=== PATIENT | male | born 1995 | race Caucasian/White ===

== ENCOUNTER 2021-12-05 22:33 | Emergency (ER) | payer BC ==
[2021-12-05 22:42] VITALS: TEMP 98
[2021-12-06] MEDS ORDERED: GELATIN SPONGE,ABSORB (SMALL) 1 EACH SPONGE TOPICAL STA (00:27)
--- NOTE | 2021-12-06 00:30 | ED ---
Wound/Laceration HPI - General Chief Complaint: Wound/Laceration Stated Complaint: left middle finger cut Time Seen by Provider: 12/06/21 00:23 Source: patient, RN notes reviewed, old records reviewed Mode of arrival: ambulatory Limitations: no limitations - History of Present Illness Initial Comments: This is a well-appearing 26-year-old male who was cutting an orange and sliced the tip of his finger. States could not control bleeding so came in. -: hour(s) (1) Location: other (left middle finger) Place: home Patient Tetanus UTD: Yes Context: accidental, sharp object use Associated Symptoms: none - Related Data Allergies Allergy/AdvReac Type Severity Reaction Status Date / Time No Known Allergies Allergy Verified 12/05/21 22:42 Review of Systems ROS Statement: Those systems with pertinent positive or pertinent negative responses have been documented in the HPI. ROS Other: All systems not noted in ROS Statement are negative. Past Medical History Past Medical History: Asthma History of Any Multi-Drug Resistant Organisms: None Reported Past Surgical History: No Surgical Hx Reported Past Psychological History: Depression Smoking Status: Never smoker Past Alcohol Use History: Occasional Past Drug Use History: None Reported General Exam Limitations: no limitations General appearance: alert, in no apparent distress Head exam: Present: atraumatic Respiratory exam: Absent: respiratory distress, accessory muscle use Cardiovascular Exam: Present: regular rate Left Hand Wrist exam: Present: tenderness, nail avulsion (distal left tip of nail with capillary bleeding) Neuro motor exam: Present: wrist extension intact, thumb opposition intact, thumb IP flexion intact, thumb adduction intact, fingers 2-5 abduction intact Neurosensory exam: Present: other (flexor and extensor tendon intact) Vascular: Present: normal capillary refill. Absent: vascular compromise Neurological exam: Present: alert, oriented X3 Psychiatric exam: Present: normal affect, normal mood Skin exam: Present: warm, dry, normal color. Absent: cyanosis, diaphoretic Course Vital Signs 12/05/21 12/06/21 22:40 00:47 Temperature 98 F Pulse Rate 80 88 Respiratory 18 16 Rate Blood Pressure 142/94 131/76 O2 Sat by Pulse 99 98 Oximetry Medical Decision Making - Medical Decision Making Gelfoam applied to the wound with gauze dressing. bleeding was controlled. flexor and extensor tendons intact. patient states his tetanus shot is up-to-date. He was directed to keep dressing in place until tomorrow and then remove and use Neosporin and bandage and keep covered and clean. Return if any signs of infection case discussed with Dr. Park Disposition Clinical Impression: Partial avulsion of fingernail Disposition: HOME SELF-CARE Condition: Good Additional Instructions: Keep dressing in place until tomorrow evening. Change dressing daily and keep clean and dry. Watch for signs of infection. Return to the emergency room with any new or concerning symptoms. Follow-up with primary care doctor next week. Is patient prescribed a controlled substance at d/c from ED?: No Referrals: Sam Earl MD [Primary Care Provider] - 1-2 days Time of Disposition: 01:12
[2021-12-06 00:50] VITALS: BP 131/76; PULSE 88; RESP 16
== END 2021-12-06 01:37 | disposition home or self-care (01) ==
LOC: EC 22:33
DX: S61.213A Laceration without foreign body of left middle finger without damage to nail, initial encounter (principal); J45.909 Unspecified asthma, uncomplicated; W26.0XXA Contact with knife, initial encounter